=== PATIENT | female | born 1970 | race Caucasian/White ===

== ENCOUNTER 2025-05-26 18:01 | Emergency (ER) | payer OTHER, SELFPAY ==
[2025-05-26 18:09] VITALS: BP 168/70; PULSE 58; RESP 18; TEMP 36.6; O2SAT 98
--- NOTE | 2025-05-26 18:17 | ED.FALL ---
HPI - Fall General Chief Complaint: Fall Stated Complaint: WC left side body injury Time Seen by Provider: 05/26/25 18:17 Source: patient and RN notes reviewed Mode of arrival: ambulatory Limitations: no limitations History of Present Illness HPI Narrative: 55-year-old female presents with concern for a fall. She reports she slipped on oil at work and her feet went out from under her and she fell onto her left side in her buttocks. She reports her whole left side hurts, she did not have any pinpoint pain. She is reporting she can move all her extremities with normal strength, range of motion and sensation. She reports lateral knee pain that is causing pain down her mid lower leg. She reports her foot feels tingly but she is not having pain in her foot. She denies any open skin, bruising. She did not hit her head MD complaint: fall Related Data Home Medications ?Medication ?Instructions ?Recorded ?Confirmed ?Last Taken ?Type clonazepam 1 mg tablet 1 mg PO DAILY 05/03/20 05/03/20 Unknown History escitalopram oxalate 20 mg tablet 20 mg PO DAILY 05/03/20 05/03/20 Unknown History gabapentin 100 mg capsule 100 mg PO BID 05/03/20 05/03/20 Unknown History lecithin, soy 1,200 mg capsule 1,200 mg PO DAILY 05/03/20 05/03/20 Unknown History lisinopril 20 mg tablet 20 mg PO DAILY 05/03/20 05/03/20 Unknown History atorvastatin 40 mg tablet mg 05/26/25 Unknown History celecoxib 200 mg capsule mg 05/26/25 Unknown History glimepiride 1 mg tablet mg 05/26/25 Unknown History Allergies Allergy/AdvReac Type Severity Reaction Status Date / Time metformin Allergy Mild Unknown Verified 05/26/25 18:03 red dye Allergy Mild Unknown Verified 05/26/25 18:03 Review of Systems Review of Systems: CONSTITUTIONAL: Denies malaise, chills, sweats, or fever. SKIN: Denies rash or itching, open skin, laceration, abrasion, redness, warmth, swelling. MUSCULOSKELETAL: Reports left knee pain, left foot tingling. She denies low back pain and tailbone pain NEUROLOGIC: Denies numbness, weakness All systems reviewed & are unremarkable except as noted in HPI and below [facility] Past Medical History Medical History (Updated 05/26/25 @ 18:29 by Jayshree Roman APRN) HTN (hypertension) GERD (gastroesophageal reflux disease) Surgical History Surgical History (Updated 05/03/20 @ 14:42 by Kelli Michael APRN) H/O colonoscopy Social History Social History (Updated 05/03/20 @ 13:29 by Neeta Regalado CMA) Smoking status: Never smoker Alcohol intake: never Substance use: never Living arrangements: with family Occupation/Education: occupation Gender identity (if verbalized by the patient): Female Comments At time of signature, agree with nursing past medical, surgical, social and family history. There is no relevant family history pertinent to the presenting complaint Exam Narrative: GENERAL: Well-appearing, well-nourished, and in no acute distress. HEAD: Normocephalic, atraumatic. EYES: PERRLA, conjunctivae clear NECK: Supple. CHEST: Speaks in full sentences. No respiratory distress. HEART: Regular rate and rhythm. Normal and equal peripheral pulses. EXTREMITIES: Bilateral upper and lower extremities have grossly normal strength and sensation, grossly normal range of motion. No edema or ecchymosis. Normal sensation with sensitivity to light touch and pain. No point tenderness. 5/5 strength with hip flexion and extension, dorsiflexion and extension, knee flexion and extension, plantar flexion and extension. Normal sensation in dermatomal distributions with sensitivity to light touch and pain. No midline back tenderness to palpation. No paraspinal tenderness. Transfers from sitting to standing. No open wounds, no skin tenting, no devitalized tissue or atrophy, no trophic changes, no obvious deformity, alignment normal, nearby joints and structures intact. Distal pulses palpable and equal bilaterally, skin warm, dry, pink. Capillary refill less than 3 seconds. SKIN: Warm, dry, no rash. NEURO: Alert and oriented x3. PSYCH: Normal mood and affect Course Course Emergency Course: Patient is aware of diagnosis, understands and agrees to treatment plan. Anticipatory guidance given. Patient agrees to follow-up as directed and is aware of reasons to seek care at the emergency department. Portions of this record may have been created with voice recognition software Level of Care: Express Care Visit Vital Signs Vital signs: Vital Signs Temperature 98 F 05/26/25 18:09 Pulse Rate 58 L 05/26/25 18:09 Respiratory Rate 18 05/26/25 18:09 Blood Pressure 168/70 H 05/26/25 18:09 Pulse Oximetry 98 05/26/25 18:09 Oxygen Delivery Room Air 05/26/25 18:09 Temperature 98 F 05/26/25 18:09 Pulse Rate 58 L 05/26/25 18:09 Respiratory Rate 18 05/26/25 18:09 Blood Pressure 168/70 H 05/26/25 18:09 Pulse Oximetry 98 05/26/25 18:09 Oxygen Delivery Room Air 05/26/25 18:09 Reviewed. MDM - Fall MDM Narrative Medical decision making narrative: I evaluated this patient in the [facility]. History is obtained from patient who is an independent historian and physical exam was performed.? Available medical records were reviewed. ? Exam findings and relevant testing show no acute concerns or changes; patient is non-toxic appearing and is in no distress. ? Differential diagnosis and treatment plan were discussed with the patient. Patient agrees with discussion and after shared medical decision making agrees with plan of care. All questions were answered to the patient's satisfaction. Patient is appropriate for outpatient treatment and follow-up. Critical Care Time Critical Care Time Critical Care Time: No Discharge Plan Discharge Clinical Impression: Fall, Left leg pain Patient Disposition: Home Condition: Stable Instructions: Musculoskeletal Pain (ED) Additional Instructions: Please follow up with your Primary Care Doctor within 48-72 hours - call for an appointment. Activity as tolerated. Take Motrin 800mg every 6-8 hours with food for the next 2-3 days, take muscle relaxers every 8 hours as needed for muscle spasm- do not drive or make any important decisions while on this medication for it can make you drowsy. You may apply ice to painful areas. If you experience any worsening pain, swelling, numbness, weakness please go to ER. Patient Language: [place] Prescriptions: New cyclobenzaprine 10 mg tablet 10 mg PO TID PRN (Reason: muscle spasm) Qty: 20 0RF ibuprofen 800 mg tablet 800 mg PO Q6H PRN (Reason: pain) Qty: 30 0RF No Action celecoxib 200 mg capsule atorvastatin 40 mg tablet glimepiride 1 mg tablet escitalopram oxalate 20 mg tablet 20 mg PO DAILY clonazepam 1 mg tablet 1 mg PO DAILY gabapentin 100 mg capsule 100 mg PO BID lecithin, soy 1,200 mg capsule 1,200 mg PO DAILY Rx Instructions: give with meal/snack lisinopril 20 mg tablet 20 mg PO DAILY pantoprazole 40 mg tablet,delayed release (DR/EC) 40 mg PO QAM Qty: 30 0RF Follow-up/Referrals: Hardik,Matti Torres MD [Primary Care Provider, Unknown] Stand Alone Forms: Work/School Release IP Time of Disposition: 18:29
== END 2025-05-26 18:35 | disposition home or self-care (01) ==
PROVIDERS: Emergency Provider Nurse Practitioner; PCP Family Medicine
DX: M79.662 Pain in left lower leg (principal); M25.562 Pain in left knee; W01.0XXA Fall on same level from slipping, tripping and stumbling without subsequent striking against object, initial encounter; Y99.0 Civilian activity done for income or pay; I10 Essential (primary) hypertension; K21.9 Gastro-esophageal reflux disease without esophagitis
CPT/HCPCS: 99213; G0463